=== PATIENT | male | born 1995 | race Caucasian/White ===

== ENCOUNTER 2018-03-02 23:15 | Observation (INO) | payer OTHER ==
[~2018-03-02] VITALS: Ht 190.5 cm; Wt 104.3 kg
[~2018-03-02 23:15] MED LIST: CILOXAN 0.50 GTT/1 B OS; DICLOFENAC SODIU5 ML OS; IBUPROFEN800 M1 PO
--- NOTE | 2018-03-03 00:10 | ED GENERAL ADULT ---
History of Present Illness General Chief Complaint: Abdominal Pain/Flank Pain Stated Complaint: ABDOMINAL PAIN Source: patient Exam Limitations: no limitations Vital Signs & Intake/Output Vital Signs & Intake/Output Vital Signs Date Time Temp Pulse Resp B/P B/P Pulse O2 O2 Flow FiO2 Mean Ox Delivery Rate 03/02 2326 98.4 73 18 153/97 98 Room Air ED Intake and Output 03/03 0000 03/02 1200 Intake Total Output Total Balance Patient 230 lb Weight Weight Reported by Patient Measurement Method Allergies Coded Allergies: No Known Allergies (03/02/18) Reconcile Medications Ciprofloxacin (Ciloxan 0.3% 2.5ML) 5 ML DROPS 1 GTT OS 4 TIMES/DAY ABRASION Diclofenac Sodium (Diclofenac Sodium 5 Ml) 5 ML ALEX 2 GTT OS Q4 PRN EYE PAIN Ibuprofen 800 MG TABLET 1 TAB PO TID PRN pain Triage Note: TRIAGE: PATIENT TO ER FROM HOME REPORTING +R SIDE ABD PAIN SINCE 1130AM TODAY, CONSTANT AND "FEELS LIKE PUNCHED IN STOMACH, CRAMPING." PATIENT DENIES V/D, +NAUSEA. LAST PO INTAKE TOAST AT APPROX 5PM AND THEN SALTINES AT 8:30PM. Triage Nurses Notes Reviewed? yes Onset: Gradual Duration: hour(s): Timing: constant HPI: 23 y/o otherwise healthy male presenting with RLQ pain x12 hours. No worsening or alleviating factors. Pain is associated with nausea, no vomiting. Denies fevers, diarrhea, melena, bloody stools, dyrusia, hematuria, or testicular pain. (Jaymie Vinson) Past History Travel History Traveled to [place] past 21 day No Medical History Any Pertinent Medical History? none Neurological: NONE EENT: NONE Cardiovascular: NONE Respiratory: NONE Gastrointestinal: NONE Hepatic: NONE Renal: NONE Musculoskeletal: NONE Psychiatric: NONE Endocrine: NONE Blood Disorders: NONE Cancer(s): NONE BAGGAGEMAN/Reproductive: NONE Surgical History Surgical History: none Psychosocial History What is your primary language Montserratian Tobacco Use: Never used Family History Hx Contributory? No (Jaymie Vinson) Review of Systems Review of Systems Constitutional: Reports: no symptoms. EENTM: Reports: no symptoms. Respiratory: Reports: no symptoms. Cardiovascular: Reports: no symptoms. GI: Reports: abdominal pain, nausea. Denies: diarrhea, bloody stool, vomiting. Genitourinary: Reports: no symptoms. Musculoskeletal: Reports: no symptoms. Skin: Reports: no symptoms. Neurological/Psychological: Reports: no symptoms. Hematologic/Endocrine: Reports: no symptoms. Immunologic/Allergic: Reports: no symptoms. (Jaymie Vinson) Physical Exam Physical Exam General Appearance: well developed/nourished, no apparent distress, alert, awake , comfortable Head: atraumatic, normal appearance Eyes: Bilateral: normal appearance. Neck: normal inspection Respiratory: normal breath sounds, lungs clear Cardiovascular: regular rate/rhythm Gastrointestinal: soft, tenderness (RLQ), No rebound or guarding Back: normal inspection Extremities: normal inspection Neurologic/Psych: awake, alert, oriented x 3, normal gait, normal mood/affect Skin: intact, normal color, warm/dry Core Measures ACS in differential dx? No CVA/TIA Diagnosis: No Sepsis Present: No Sepsis Focused Exam Completed? No (Jaymie Vinson) Progress Differential Diagnoses I considered the following diagnoses in my evaluation of the patient: [ Appendicitis vs testicular torsion vs UTI ] Plan of Care: Orders Procedure Date/time Status CBC WITHOUT DIFFERENTIAL 03/03 13 Complete BASIC METABOLIC PANEL 03/03 13 Complete URINALYSIS 03/02 2343 Complete Current Medications Sig/Jose Rafael Start time Last Medication Dose Stop Time Status Admin Ampicillin Sodium/ 3,000 MG ONCE ONE 03/03 200 UNVr Sulbactam Sodium 03/03 229 (Unasyn) Sodium Chloride 100 ML (Normal Saline 0.9%) Ondansetron HCl 4 MG ONCE ONE 03/03 200 UNVr (Zofran) 03/03 201 Laboratory Tests 03/03/18 0030: Anion Gap 16, Estimated GFR > 60, BUN/Creatinine Ratio 18.8, Glucose 96, Calcium 9.4, CBC w Diff NO MAN DIFF REQ, RBC 5.21, MCV 87.2, MCH 29.5, MCHC 33.8, RDW 13.2, MPV 8.9, Gran % 80.4 H, Lymphocytes % 11.3 L, Monocytes % 7.0, Eosinophils % 1.2, Basophils % 0.1, Absolute Granulocytes 7.2 H, Absolute Lymphocytes 1.0 L, Absolute Monocytes 0.6, Absolute Eosinophils 0.1, Absolute Basophils 0 03/02/18 2343: Urine Color YEL, Urine Clarity CLEAR, Urine pH 6.0, Ur Specific [place] >= 1.030 , Urine Protein NEG, Urine Ketones NEG, Urine Nitrite NEG, Urine Bilirubin NEG, Urine Urobilinogen 0.2, Ur Leukocyte Esterase NEG, Ur Microscopic EXAM NOT REQUIRED, Urine Hemoglobin NEG, Urine Glucose NEG Pt signed out to Dr. Aguila with labs and imaging pending. Initial ED EKG: none (Mike DUBON,Jaymie) Diagnostic Imaging: Viewed by Me: CT Scan. Discussed w/RAD: CT Scan. Radiology Impression: PATIENT: MARINA AMAYA PRESENT AGE: 23 PATIENT ACCOUNT NO: [id number] : 93 LOCATION: ER ORDERING PHYSICIAN: Jaymie DUBON SERVICE DATE: 03/03/18 EXAM TYPE : CAT - CT ABD & PELVIS W IV CONTRAST EXAMINATION: CT ABDOMEN AND PELVIS WITH CONTRAST CLINICAL INFORMATION: Right lower quadrant pain COMPARISON: None TECHNIQUE: Multidetector volumetric imaging was performed of the abdomen and pelvis following IV administration of 95 mL of Optiray 320 intravenous contrast. Sagittal and coronal reformatted images were obtained on the technologist's workstation. DLP: 497 mGy-cm FINDINGS: LUNG BASES: The visualized lung bases are unremarkable. LIVER, GALLBLADDER, AND BILIARY TREE: The liver is normal in size, shape, and attenuation. No focal hepatic lesion or biliary ductal dilatation is present. The gallbladder is unremarkable with no evidence of radiopaque gallstones, gallbladder wall thickening, or obvious pericholecystic inflammatory changes. PANCREAS: Unremarkable. SPLEEN: Unremarkable. ADRENAL GLANDS: Unremarkable. KIDNEYS AND URETERS: The kidneys are normal in size, shape, and attenuation. No hydronephrosis, hydroureter, or calculi seen. No perinephric stranding. BLADDER: Unremarkable. GASTROINTESTINAL TRACT: The stomach is unremarkable. The small bowel is normal in caliber. There is no obstruction. The appendix is abnormal. It is mildly prominent in size, measuring up to 0.9 cm. There are inflammatory changes adjacent to the appendix with an appendicolith noted. No free air or fluid collection. ABDOMINAL WALL: No significant hernia is appreciated. LYMPH NODES: Normal. VASCULAR: Unremarkable. PELVIC VISCERA: The prostate and seminal vesicles are unremarkable. OSSEOUS STRUCTURES: No acute or suspicious osseous abnormality. IMPRESSION: Acute appendicitis. No free air or fluid collection. This critical result was discussed with Dr. Aguila by telephone at 03/03/2018 1:42 AM and it was ascertained that the content and urgency of the report was understood at the time of direct communication. DICTATED BY: Sohail Nieves MD DATE/TIME DICTATED:03/03/18139 AGILE PROJECT MANAGER:EDWIN DATE/TIME TRANSCRIBED:03/03/18139 CONFIDENTIAL, DO NOT COPY WITHOUT APPROPRIATE AUTHORIZATION. <Electronically signed in Other Vendor System> SIGNED BY: Sohail Nieves MD 03/03/18146 Comments: Patient and family have been updated on the CAT scan results. Questionably answered. Surgery has been consulted. (Agustín Aguila MD) Departure Departure Disposition: STILL A PATIENT Condition: Stable Referrals: Patient Has No Primary Care Dr (PCP/Family) Departure Forms: Customer Survey General Discharge Information (Jaymie Vinson) Departure Clinical Impression Primary Impression: Acute appendicitis Secondary Impressions: Abdominal pain Observation Note Spoke With: Omar AYALA,Donovan Carrion Physician Advisor Notified: AGUSTÍN AGUILA MD Place Patient In: Non-ED OBS Care Area Rationale for Observation: My rational for observation is as follows [IV ABX, SURGICAL INTERVENTION]. PA/DOCTOR OF NURSE ANESTHESIA Co-Sign Statement Statement: ED Attending supervision documentation- [X] I saw and evaluated the patient. I have also reviewed all the pertinent lab results and diagnostic results. I agree with the findings and the plan of care as documented in the PA's/DOCTOR OF NURSE ANESTHESIA's documentation. [X] I have reviewed the ED Record and agree with the PA's/DOCTOR OF NURSE ANESTHESIA's documentation. [] Additions or exceptions (if any) to the PAs/DOCTOR OF NURSE ANESTHESIA's note and plan are summarized below: [SEE ABOVE NOTE] (Agustín Aguila MD) Critical Care Note Critical Care Note Critical Care Time: non-applicable (Jaymie Vinson)
[2018-03-03 00:49] LABS: ABSOLUTE BASOPHIL COUNT 0 /CUMM (0.0-0.2); ABSOLUTE EOSINOPHIL COUNT 0.1 /CUMM (0.0-0.7); ABSOLUTE GRANULOCYTE CT 7.2 /CUMM (1.4-6.5); ABSOLUTE MONOCYTE COUNT 0.6 /CUMM (0.10-0.60); BASOPHIL % 0.1 % (0.0-2.0); EOSINOPHIL % 1.2 % (0-5); GRANULOCYTE % 80.4 % (42.2-75.2); HEMATOCRIT 45.4 % (42-52); MEAN CORPUSCULAR HGB 29.5 PG (27.0-31.0); MEAN CORPUSCULAR HGB CONC 33.8 G/DL (33.0-37.0); MEAN CORPUSCULAR VOLUME 87.2 FL (80.0-94.0); MEAN PLATELET VOLUME 8.9 FL (7.4-10.4); PLATELET COUNT 227 /CUMM (130-400); RBC DISTRIBUTION WIDTH 13.2 % (11.5-14.5); RED BLOOD CELL CT 5.21 /CUMM (4.70-6.10); WHITE BLOOD CELL COUNT 8.9 /CUMM (4.8-10.8)
--- NOTE | 2018-03-03 01:47 | CT SCAN REPORT ---
EXAMINATION: CT ABDOMEN AND PELVIS WITH CONTRAST CLINICAL INFORMATION: Right lower quadrant pain COMPARISON: None TECHNIQUE: Multidetector volumetric imaging was performed of the abdomen and pelvis following IV administration of 95 mL of Optiray 320 intravenous contrast. Sagittal and coronal reformatted images were obtained on the technologist's workstation. DLP: 497 mGy-cm FINDINGS: LUNG BASES: The visualized lung bases are unremarkable. LIVER, GALLBLADDER, AND BILIARY TREE: The liver is normal in size, shape, and attenuation. No focal hepatic lesion or biliary ductal dilatation is present. The gallbladder is unremarkable with no evidence of radiopaque gallstones, gallbladder wall thickening, or obvious pericholecystic inflammatory changes. PANCREAS: Unremarkable. SPLEEN: Unremarkable. ADRENAL GLANDS: Unremarkable. KIDNEYS AND URETERS: The kidneys are normal in size, shape, and attenuation. No hydronephrosis, hydroureter, or calculi seen. No perinephric stranding. BLADDER: Unremarkable. GASTROINTESTINAL TRACT: The stomach is unremarkable. The small bowel is normal in caliber. There is no obstruction. The appendix is abnormal. It is mildly prominent in size, measuring up to 0.9 cm. There are inflammatory changes adjacent to the appendix with an appendicolith noted. No free air or fluid collection. ABDOMINAL WALL: No significant hernia is appreciated. LYMPH NODES: Normal. VASCULAR: Unremarkable. PELVIC VISCERA: The prostate and seminal vesicles are unremarkable. OSSEOUS STRUCTURES: No acute or suspicious osseous abnormality. IMPRESSION: Acute appendicitis. No free air or fluid collection. This critical result was discussed with Dr. Aguila by telephone at 03/03/2018 1:42 AM and it was ascertained that the content and urgency of the report was understood at the time of direct communication.
--- NOTE | 2018-03-03 02:31 | Admission Core Measures ---
Acute Coronary Syndrome (CM) ACS Core Measures Acute Coronary Syndrome Diagnosis No Congestive Heart Failure (NEW) CHF Core Measures Congestive Heart Failure Diagnosis No Cerebrovascular Accident (NEW) CVA Core Measures CVA/TIA Diagnosis No Venous Thromboembolism VTE Core Alejandro (View Protocol) VTE Risk Factors Acute Medical Illness No Mechanical VTE Prophylaxis d/t N/A MechProphylax Ordered No VTE Pharm Prophylaxis d/t NA PharmProphylax ordered Problem List As ranked by this Provider includes Assessment & Plan 1. Acute appendicitis HOME MEDS Home Med List Ciprofloxacin (Ciloxan 0.3% 2.5ML) 5 ML DROPS 1 GTT OS 4 TIMES/DAY ABRASION Diclofenac Sodium (Diclofenac Sodium 5 Ml) 5 ML ALEX 2 GTT OS Q4 PRN EYE PAIN Ibuprofen 800 MG TABLET 1 TAB PO TID PRN pain
--- NOTE | 2018-03-03 02:32 | History & Physical Pre-Op ---
General Information and HPI History of Present Illness: 23yoM with abdominal pain that began 11am, started as generalized abdominal discomfort. Left work early, felt nauseous at home though no emesis. No fever/ chills. Pain has now localized to right side of abd. Last ate some toast at 8pm , though no appetite. Last Bm this am, "normal". No medical history, No surgical history. Allergies/Medications Allergies: Coded Allergies: No Known Allergies (03/02/18) Home Med list Ciprofloxacin (Ciloxan 0.3% 2.5ML) 5 ML DROPS 1 GTT OS 4 TIMES/DAY ABRASION Diclofenac Sodium (Diclofenac Sodium 5 Ml) 5 ML ALEX 2 GTT OS Q4 PRN EYE PAIN Ibuprofen 800 MG TABLET 1 TAB PO TID PRN pain Past History Medical History Neurological: NONE EENT: NONE Cardiovascular: NONE Respiratory: NONE Gastrointestinal: NONE Hepatic: NONE Renal: NONE Musculoskeletal: NONE Psychiatric: NONE Endocrine: NONE Blood Disorders: NONE Cancer(s): NONE Surgical History Pertinent Surgical History: none Past Family/Social History Psychosocial History Primary Language: Wolof Smoking Status: Never Smoked ETOH Use: occasional use (3drinks per week) Illicit Drug Use: denies illicit drug use Employment History Employment: Employed 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 no r/g. ext- calves soft nt bl Last 24 Hrs of Labs/Luis: Laboratory Tests 03/03/18 0030: Anion Gap 16, Estimated GFR > 60, BUN/Creatinine Ratio 18.8, Glucose 96, Calcium 9.4, CBC w Diff NO MAN DIFF REQ, RBC 5.21, MCV 87.2, MCH 29.5, MCHC 33.8, RDW 13.2, MPV 8.9, Gran % 80.4 H, Lymphocytes % 11.3 L, Monocytes % 7.0, Eosinophils % 1.2, Basophils % 0.1, Absolute Granulocytes 7.2 H, Absolute Lymphocytes 1.0 L, Absolute Monocytes 0.6, Absolute Eosinophils 0.1, Absolute Basophils 0 03/02/18 2343: Urine Color YEL, Urine Clarity CLEAR, Urine pH 6.0, Ur Specific [place] >= 1.030 , Urine Protein NEG, Urine Ketones NEG, Urine Nitrite NEG, Urine Bilirubin NEG, Urine Urobilinogen 0.2, Ur Leukocyte Esterase NEG, Ur Microscopic EXAM NOT REQUIRED, Urine Hemoglobin NEG, Urine Glucose NEG Diagnostic Data Other Results SERVICE DATE: 03/03/18 EXAM TYPE: CAT - CT ABD & PELVIS W IV CONTRAST EXAMINATION: CT ABDOMEN AND PELVIS WITH CONTRAST CLINICAL INFORMATION: Right lower quadrant pain COMPARISON: None TECHNIQUE: Multidetector volumetric imaging was performed of the abdomen and pelvis following IV administration of 95 mL of Optiray 320 intravenous contrast. Sagittal and coronal reformatted images were obtained on the technologist's workstation. DLP: 497 mGy-cm FINDINGS: LUNG BASES: The visualized lung bases are unremarkable. LIVER, GALLBLADDER, AND BILIARY TREE: The liver is normal in size, shape, and attenuation. No focal hepatic lesion or biliary ductal dilatation is present. The gallbladder is unremarkable with no evidence of radiopaque gallstones, gallbladder wall thickening, or obvious pericholecystic inflammatory changes. PANCREAS: Unremarkable. SPLEEN: Unremarkable. ADRENAL GLANDS: Unremarkable. KIDNEYS AND URETERS: The kidneys are normal in size, shape, and attenuation. No hydronephrosis, hydroureter, or calculi seen. No perinephric stranding. BLADDER: Unremarkable. GASTROINTESTINAL TRACT: The stomach is unremarkable. The small bowel is normal in caliber. There is no obstruction. The appendix is abnormal. It is mildly prominent in size, measuring up to 0.9 cm. There are inflammatory changes adjacent to the appendix with an appendicolith noted. No free air or fluid collection. ABDOMINAL WALL: No significant hernia is appreciated. LYMPH NODES: Normal. VASCULAR: Unremarkable. PELVIC VISCERA: The prostate and seminal vesicles are unremarkable. OSSEOUS STRUCTURES: No acute or suspicious osseous abnormality. IMPRESSION: Acute appendicitis. No free air or fluid collection. Assessment/Plan Assessment/Plan: A- 23yoM with acute appendicitis, stable, no pmhx. P- observation status npo ivf unasyn prn pain meds dvt ppx to or in am will dw attending As Ranked By This Provider Problem List: 1. Acute appendicitis
[2018-03-03 06:32] VITALS: BP 113/55
--- NOTE | 2018-03-03 08:43 | History & Physical Pre-Op ---
General Information and HPI History of Present Illness: CC: abdominal pain HPI: 23-year-old otherwise healthy non-smoker nondiabetic no family history of appendicitis no recent flulike symptoms no recent cold sore throat no changes in bowel habits weight or appetite no unusual meals yesterday 11 AM after a run he suddenly started having some generalized abdominal pain all over which then became more focused in his right lower quadrant it was not that severe but his family convinced him to come to the hospital no fevers no nausea no vomiting no sweats. Pain does not radiate no dysuria no bleeding per rectum not worse on movement.I've reviewed the [facility]. No history of GERD, PUD, bleeding problems, heart disease or issues with anesthesia. No prior surgery family history positive father had lung cancer mother COPD is also history of diabetes and hypertension Allergies/Medications Allergies: Coded Allergies: No Known Allergies (03/02/18) Home Med list Ciprofloxacin (Ciloxan 0.3% 2.5ML) 5 ML DROPS 1 GTT OS 4 TIMES/DAY ABRASION Diclofenac Sodium (Diclofenac Sodium 5 Ml) 5 ML ALEX 2 GTT OS Q4 PRN EYE PAIN Ibuprofen 800 MG TABLET 1 TAB PO TID PRN pain Past History Medical History Neurological: NONE EENT: NONE Cardiovascular: NONE Respiratory: NONE Gastrointestinal: NONE Hepatic: NONE Renal: NONE Musculoskeletal: NONE Psychiatric: NONE Endocrine: NONE Blood Disorders: NONE Cancer(s): NONE Surgical History Pertinent Surgical History: none Past Family/Social History Psychosocial History Primary Language: Chinese Smoking Status: Never Smoked ETOH Use: occasional use (3drinks per week) Illicit Drug Use: denies illicit drug use Employment History Employment: Employed Profession/Employer: security engineer Review of Systems Review of Systems: Constitutional: No fever, sweats or weight loss ENMT: No sore throat Cardiovascular: No chest pain, palpitations or leg swelling Respiratory: No shortness of breath, cough, or sputum or dyspnea on exertion GI: No GERD or bleeding per rectum : No dysuria or hematuria Musculoskeletal: No new muscle weakness, bone or joint pain Skin / Breast: No jaundice, rashes or itching Psychiatric: No history of drug or alcohol abuse no depression or anxiety Hematologic / lymphatic system: No problems with excessive bleeding, bruising, or blood clots Exam & Diagnostic Data Last 24 Hrs of Vital Signs/I&O I reviewed Vital Signs Date Time Temp Pulse Resp B/P B/P Pulse O2 O2 Flow FiO2 Mean Ox Delivery Rate 03/03 0632 98.0 55 18 113/55 100 Room Air 03/02 2326 98.4 73 18 153/97 98 Room Air I reviewed Intake & Output 03/03 1600 03/03 0800 03/03 0000 Intake Total 1000 Output Total Balance 1000 Intake, IV 1000 Patient 230 lb Weight Weight Reported by Patient Measurement Method Physical Exam: Constitutional: pleasant, no acute distress, conversant Eyes: sclera anicteric ENMT: ears and nose atraumatic, moist mucous membranes, good dentition, no lip lesions Neck: Supple, trachea is midline, no cervical or supraclavicular adenopathy and no palpable thyromegaly Cardiovascular: S1, S2, no murmurs, no peripheral edema Respiratory: clear to auscultation with normal respiratory effort and no intercostal retractions GI: abdomen soft, McBurney's point tenderness no rebound no guarding, nondistended, no palpable hepatosplenomegaly Extremities / lymphatics: symmetrically warm, free range of motion no peripheral edema, no cervical, supraclavicular, axillary, or inguinal adenopathy Musculoskeletal: Did not evaluate gait and station, no digital cyanosis, good muscle strength and tone no atrophy, motor grossly 5 out of 5 throughout Skin: no jaundice, no rashes warm, nondiaphoretic, no areas of erythema or induration Psychiatric: mood and affect are appropriate and alert and oriented to person place and time Last 24 Hrs of Labs/Luis: I reviewed Laboratory Tests 03/03/18 0030: Anion Gap 16, Estimated GFR > 60, BUN/Creatinine Ratio 18.8, Glucose 96, Calcium 9.4, CBC w Diff NO MAN DIFF REQ, RBC 5.21, MCV 87.2, MCH 29.5, MCHC 33.8, RDW 13.2, MPV 8.9, Gran % 80.4 H, Lymphocytes % 11.3 L, Monocytes % 7.0, Eosinophils % 1.2, Basophils % 0.1, Absolute Granulocytes 7.2 H, Absolute Lymphocytes 1.0 L, Absolute Monocytes 0.6, Absolute Eosinophils 0.1, Absolute Basophils 0 03/02/18 9743: Urine Color YEL, Urine Clarity CLEAR, Urine pH 6.0, Ur Specific [place] >= 1.030 , Urine Protein NEG, Urine Ketones NEG, Urine Nitrite NEG, Urine Bilirubin NEG, Urine Urobilinogen 0.2, Ur Leukocyte Esterase NEG, Ur Microscopic EXAM NOT REQUIRED, Urine Hemoglobin NEG, Urine Glucose NEG Diagnostic Data Other Results SERVICE DATE: 03/03/18 EXAM TYPE: CAT - CT ABD & PELVIS W IV CONTRAST EXAMINATION: CT ABDOMEN AND PELVIS WITH CONTRAST CLINICAL INFORMATION: Right lower quadrant pain COMPARISON: None TECHNIQUE: Multidetector volumetric imaging was performed of the abdomen and pelvis following IV administration of 95 mL of Optiray 320 intravenous contrast. Sagittal and coronal reformatted images were obtained on the technologist's workstation. DLP: 497 mGy-cm FINDINGS: LUNG BASES: The visualized lung bases are unremarkable. LIVER, GALLBLADDER, AND BILIARY TREE: The liver is normal in size, shape, and attenuation. No focal hepatic lesion or biliary ductal dilatation is present. The gallbladder is unremarkable with no evidence of radiopaque gallstones, gallbladder wall thickening, or obvious pericholecystic inflammatory changes. PANCREAS: Unremarkable. SPLEEN: Unremarkable. ADRENAL GLANDS: Unremarkable. KIDNEYS AND URETERS: The kidneys are normal in size, shape, and attenuation. No hydronephrosis, hydroureter, or calculi seen. No perinephric stranding. BLADDER: Unremarkable. GASTROINTESTINAL TRACT: The stomach is unremarkable. The small bowel is normal in caliber. There is no obstruction. The appendix is abnormal. It is mildly prominent in size, measuring up to 0.9 cm. There are inflammatory changes adjacent to the appendix with an appendicolith noted. No free air or fluid collection. ABDOMINAL WALL: No significant hernia is appreciated. LYMPH NODES: Normal. VASCULAR: Unremarkable. PELVIC VISCERA: The prostate and seminal vesicles are unremarkable. OSSEOUS STRUCTURES: No acute or suspicious osseous abnormality. IMPRESSION: Acute appendicitis. No free air or fluid collection. Assessment/Plan Assessment/Plan: Studies reviewed today's CT scan on PACS myself shows a appendix not slightly thickened with surrounding inflammatory changes partially retrocecal seems to be some lymph nodes there are 2 Impression is acute appendicitis. I explained to the patient that this is a potentially life-threatening infection for which I recommend an appendectomy. I feel antibiotics often alone are not enough and sometimes there is an occult malignancy. The severity of infection is related to the chance of perforation which usually increases after about 24 hours fortunately the patient is presenting earlier. Depending on what we find intraoperatively they may be discharged the same day or may need to stay for more IV antibiotics, at depends. I also discussed the possibility of a postoperative infection whether superficial or deep, this is also related to the initial severity and may also appear even a week later after an initial interval of well-being during the recovery. I explained the operation we usually do it laparoscopically rarely converting to open, depending on the amount of inflammation and whether the anatomy is very unusual all to avoid inadvertent injury to surrounding surrounding structures such as bowel and blood vessels and ureter. We also discussed the potential risks, benefits and alternatives to the procedure and surgery in general, issues that included but were not limited to, anesthetic risks hemorrhage requiring transfusion, the risk of transfusion itself, infection, heart attack, stroke, . As Ranked By This Provider Problem List: 1. Acute appendicitis
--- NOTE | 2018-03-03 09:40 | Patient Discharge Instructions ---
Discharge Instructions General Discharge Information You were seen/treated for: Acute appendicitis You had these procedures: Laparoscopic appendectomy Watch for these problems: Increased pain, distenstion, fever > 101.3 F, chills, nausea, vomiting, redness, swelling or drainage from your incisions No bath, but you may shower: Yes Other wound care: Keep incisions clean and dry Ok to remove dressing in 48 hours after surgery No lotions or ointments Special Instructions: Call to schedule a follow up appointment with Dr. Nelson in 10-14 days or sooner with concerns. Diet Continue normal diet: Yes Recommended Diet: Clear Liquids (Advance to regular as tolerate) Activity Full Activity/No Limits: No Activity Self Limited: Yes Pounds, do NOT lift more than: 10 (x 4 weeks) Other activity limits: No heavy lifting or strenous activity for 4 weeks Acute Coronary Syndrome Inclusion Criteria At DC or during hospital stay patient has or had the following: ACS DIAGNOSIS No Discharge Core Measures Meds if any: Prescribed or Continued at Discharge Meds if any: NOT Prescribed or Continued at Discharge Congestive Heart Failure Inclusion Criteria At DC or during hospital stay patient has or had the following: CHF DIAGNOSIS No Discharge Core Measures Meds if any: Prescribed or Continued at Discharge Meds if any: NOT Prescribed or Continued at Discharge Cerebrovascular accident Inclusion Criteria At DC or during hospital stay patient has or had the following: CVA/TIA Diagnosis No Discharge Core Measures Meds if any: Prescribed or Continued at Discharge Meds if any: NOT Prescribed or Continued at Discharge Venous thromboembolism Inclusion Criteria VTE Diagnosis No VTE Type NONE VTE Confirmed by (Test) NONE Discharge Core Measures - Per Current guidelines, there needs to be overlap - treatment for the first 5 days of Warfarin therapy. - If discharged on Warfarin prior to 5 days of - overlap therapy, the patient will need to be - assessed for post discharge needs including - *Post discharge parental anticoagulation - *Warfarin and/or parental anticoagulation education - *Follow up date to check INR post discharge At least 5 days overlap therapy as Inpatient No Meds if any: Prescribed or Continued at Discharge Note: Overlap Therapy is Warfarin and Anticoagulant Meds if any: NOT Prescribed or Continued at Discharge
--- NOTE | 2018-03-03 12:12 | Operative Report ---
Operative/Inv Procedure Report Surgery Date: 03/03/18 Name of Procedure: laparoscopic appy Pre-Operative Diagnosis: acute appendicitis Post-Operative Diagnosis: same Estimated Blood Loss: scant Surgeon/Associate Director Data & Analytics: Omar AYALA,Donovan DUBON Anesthesia: general endotracheal tube Operative/Procedure Note Note: Patient was placed on the OR table in the supine position. After successful induction of general anesthesia the patient's abdomen was prepped clipped and draped in the usual sterile fashion The left arm was tucked. Local anesthetic was injected at the top of the umbilicus and entry into the peritoneum was established via the open Way technique: a one cm curved incision was made at the top of the umbilicus, the linea alba was secured between 2 pediatric Jamee clamps and incised vertically, 0-Vicryl stay sutures were placed on each side and then while retracting upwards, the peritoneal layer was entered sharply, then through that small opening, using an S retractor acting like a shoehorn, a 10 mm blunt trocar was inserted obliquely to the right and secured with the stay sutures. The gas was turned on to maximum of 15 mm, two 5 mm dissecting ports were then inserted, one suprapubic and one left lower quadrant, laterally. We used a local anesthetic needle to guide their trajectories, particular attention was given to avoid injury to the bowel, the bladder and the epigastric vessels. Then our attention was directed to the right lower quadrant, the small bowel was swept superiorly and medially, revealing the base of the cecum. An inflamed appendix was then mobilized by it from the lateral and inferior peritoneal attachments using cautery. This took more work as it was retrocecal. Using a combination of a [place] dissector, peanut dissector and a Marco A clamp, a window was developed between the mesoappendix and the base of the appendix. This window is then used to divide the appendix at the base and the mesoappendix with a linear stapling device, separately, using an intestinal cartridge for the appendix and a vascular cartridge for the mesoappendix; the division of the appendix includes a small flange of cecal base. The appendix is lowered into an Endobag and set aside. The staple lines were checked for bleeding and small oozing was controlled with light zaps of the cautery. We deliberately irrigate the area including up by the liver and down in the pelvis, several rounds, checking the staple lines and each time to make sure that there is no ongoing bleeding. Next the instruments and the trochars and Endobag are removed, letting the gas out. We closed the umbilical fascial incision with a [id number] 0 vicryl suture, then the 3 skin incisions are closed with multiple interrupted subcuticular 4-0 Biosyn sutures, 3 for the umbilical, 1 each for the smaller ones, then covered with Mastisol, Steri-Strips and Band- Aids. EBL minimal Lap and sponge and sponge counts: correct Wound expectancy: infected IV fluids: crystalloid Complications: none Patient tolerated the procedure well was awakened and extubated and returned to the recovery room in satisfactory condition.
[2018-03-03] MEDS ORDERED: PERCOCET 5-3251 EACH PO (12:34)
== END 2018-03-03 16:05 ==
LOC: ERH 23:15 → ERHI 03-03 02:27 → PACUH 03-03 12:56 → CMPBEDREQ 03-03 15:20 → PACUH 03-03 16:05
PROVIDERS: Physician Assistant
DX: K35.80 Unspecified acute appendicitis (principal)
CPT/HCPCS: 74177; 81003; 88304; 96374; 96375; C1781; C9290; J0131; J1644; J2405; J2550; J7042